=== PATIENT | female | born 1940 | race Caucasian/White ===

== ENCOUNTER 2018-02-27 09:41 | Day surgery (SDC) | payer OTHER ==
[2018-02-27 10:36] VITALS: BMI 23.3
[2018-02-27 11:17] VITALS: TEMP 97.7
--- NOTE | 2018-02-27 11:32 | PROC ---
Endoscopy Procedure Endoscopy procedure completed. Please see scanned procedure report.
[2018-02-27 13:03] VITALS: PULSE 66
[2018-02-27 13:22] VITALS: BP 106/62
== END 2018-02-27 12:15 | disposition home or self-care (01) ==
LOC: JASU-ENDO 09:41
PROVIDERS: ATTEND Internal Medicine Gastroenterology
PROC: 0DB68ZX Excision of Stomach, Via Natural or Artificial Opening Endoscopic, Diagnostic (ICD-10-PCS; 2018-02-27)
PROC: 0DB98ZX Excision of Duodenum, Via Natural or Artificial Opening Endoscopic, Diagnostic (ICD-10-PCS; principal; 2018-02-27 11:00)
DX: K29.80 Duodenitis without bleeding (principal)
CPT/HCPCS: 88305-TC; 88342-TC

== ENCOUNTER 2019-10-10 04:30 | Day surgery (SDC) | payer OTHER ==
[2019-09-20 17:06] VITALS: BMI 20.9
--- NOTE | 2019-10-09 19:11 | HP ---
DATE OF ADMISSION: 10/10/2019 ADMISSION DIAGNOSIS: Chronic sinusitis and nasal polyps. HISTORY OF PRESENT ILLNESS: This 78-year-old female has had a long history of chronic sinus problems. She reports facial pain, headache, nasal congestion and obstruction as well as sinus pain and pressure. She has had significant nasal polyps noted. There is thick, watery drainage as well as yellow drainage and eye pressure bilaterally. 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 She has been found to have significant nasal polyps. CT scan of the paranasal sinuses shows chronic pansinusitis, and she is now admitted for endoscopic sinus surgery to address ethmoid, maxillary, frontal, and sphenoid sinuses as well as excision of extensive nasal polyps with image guidance. PAST MEDICAL HISTORY: Primary medical doctor is Elizabeth Faustin MD. The patient has had history of COPD, emphysema, gastroesophageal reflux disease, high blood pressure. She has undergone previous cataract surgery as well as gallbladder surgery and a bladder lift. She has had 1 episode of some undefined anesthesia problem at [facility] after her cholecystectomy, but she has had general surgery for a bladder lift subsequently without problem. Bleeding history is negative. FAMILY HISTORY: Negative for bleeding or anesthesia problems. PRESENT MEDICATIONS: Include amlodipine, Bystolic, calcium, fluticasone nasal spray, and losartan. ALLERGIES: She does report allergies to LISINOPRIL as well as IODINE. SOCIAL HISTORY: She does not smoke. REVIEW OF SYSTEMS: Indicates positive headache and nasal obstruction, positive anosmia, mild intermittent cough, heartburn, and allergies. PHYSICAL EXAMINATION: General: Patient is a well-developed female in no distress. HEENT: Head is normal. Eyes are clear. Ears are unremarkable. The nose has significant congestion. The septum is intact. There is thick mucus, massive nasal polyps obstructing the nasal airways. Polyps are also visualized out of the middle meatuses and posterior choanae. DATA: Preoperative labs are pending. CT scan of the paranasal sinuses performed at [facility] on June 03, 2018, demonstrates almost complete opacification of maxillary sinuses and the frontal sinus. There is moderate thickening of the sphenoid sinuses and the ethmoid sinus. Polyp formation is seen. Occlusion of both osteomeatal units is present. IMPRESSION: Chronic pansinusitis and nasal polyps with anosmia. PLAN: Endoscopic sinus surgery to address ethmoid, maxillary, frontal, and sphenoid sinuses; extensive nasal polypectomy with image guidance. INFORMED CONSENT: Patient understands the indications, alternatives, nature, risks, and benefits of proposed surgery. Potential complications including, but not limited to, anesthesia, bleeding, infection, recurrence, numbness, reduced sense of smell, eye injury and brain injury were discussed in detail. She understands and accepts these risks and wishes to proceed with surgery. Questions are answered fully. MELISA RED M.D. JORDAN/[id number]
[2019-10-10] MEDS ORDERED: PROPOFOL 20 ML ONE ×2 (07:04)
[2019-10-10] MEDS ORDERED: fentaNYL CITRATE 250 MCG/5 ML VIAL ONE (07:04)
[2019-10-10] MEDS ORDERED: MIDAZOLAM HCL 2 MG/2 ML SINGLE DOSE VIAL ONE (07:05)
[2019-10-10] MEDS ORDERED: ROCURONIUM BROMIDE 50 MG/5 ML SYRINGE ONE (07:05)
[2019-10-10] MEDS ORDERED: SUCCINYLCHOLINE CHLORIDE 200 MG/10 ML SYRINGE ONE (07:05)
[2019-10-10] MEDS ORDERED: LIDOCAINE HCL/PF 2% SDV 5ML VIAL ONE (07:06)
[2019-10-10] MEDS ORDERED: LIDOCAINE HCL 2% JELLY (5 ML/TUBE) ONE (07:06)
[2019-10-10] MEDS ORDERED: DEXAMETHASONE SOD PHOSPHATE 4 MG/1 ML VIAL ONE (07:06)
[2019-10-10] MEDS ORDERED: LIDOCAINE 1%-EPI 1:100,000 30 ML MDV IJ ONE (07:53)
--- NOTE | 2019-10-10 07:55 | HP ---
History & Physical Update - History History: No Change - Physical Physical: No Change - Assessment Assessment: No Change - Plan Plan: No Change
[2019-10-10] MEDS ORDERED: COCAINE HCL 4% TOPICAL SOLUTION 4 ML BOTTLE TP ONE ×2 (08:07→08:29)
[2019-10-10] MEDS ORDERED: EPHEDRINE SULFATE/0.9% NACL/PF 50 MG/10 ML SYRINGE NR ONE (08:23)
[2019-10-10] MEDS ORDERED: LIDOCAINE 1%/EPI 1:100000 (20 ML MULTI DOSE VIAL) IJ ONE ×2 (08:28)
[2019-10-10] MEDS ORDERED: VASOPRESSIN 20 UNITS/ML VIAL IV ONE (08:36)
[2019-10-10] MEDS ORDERED: NEOSTIGMINE METHYLSULFATE 0.5 MG/ML - 10 ML MDV ONE (09:16)
[2019-10-10] MEDS ORDERED: GLYCOPYRROLATE 0.2 MG/1 ML VIAL ONE (09:17)
[2019-10-10] MEDS ORDERED: oxyCODONE HCL 5 MG TABLET PO PRN (09:48)
--- NOTE | 2019-10-10 09:48 | OP ---
Operative Note - Note: Operative Date: 10/10/19 ([id number]) Pre-Operative Diagnosis: chronic pansinusitis, nasal polyposis Operation: bilateral endoscopic ethmoidectomy, anterior and posterior, bilateral endoscopic sphenoidotomy, bilateral endoscopic maxillary sinus antrostomy with removal of tissue, bilateral frontal sinus exploration, extensive bilateral nasal polypectomy, image guidance Findings: chronic pansinusitis with extensive nasal polyposis Implants: none Post-Operative Diagnosis: Same as Pre-op Surgeon: Joseph Thompson Anesthesiologist/COILED COIL INSPECTOR: Abdoulaye Johnston Anesthesia: General Specimens Removed: left nasal polyps,ethmoid and maxillary sinus tissue. right nasal polyps,ethmoid and maxillary sinus tissue Estimated Blood Loss (mls): 25 Drains & Tubes with Location: none Blood Volume Replaced (mls): 0
[2019-10-10] MEDS ORDERED: ONDANSETRON 4 MG/2 ML VIAL IVPUSH PRN (10:12)
[2019-10-10] MEDS ORDERED: LACTATED RINGERS SOLUTION 1,000 ML IV SCH (10:15)
[2019-10-10 13:53] VITALS: TEMP 97.4
[2019-10-10 14:36] VITALS: BP 104/63; PULSE 59
--- NOTE | 2019-10-10 19:40 | OP ---
DATE OF OPERATION: 10/10/2019 PREOPERATIVE DIAGNOSIS: Chronic pansinusitis and extensive nasal polyposis. POSTOPERATIVE DIAGNOSIS: Chronic pansinusitis and extensive nasal polyposis. PROCEDURE: 1. Bilateral endoscopic ethmoidectomy anterior and posterior. 2. Bilateral endoscopic sphenoidotomy. 3. Bilateral endoscopic maxillary sinus antrostomy with removal of tissue. 4. Bilateral internal sinus exploration. 5. Extensive bilateral nasal polypectomy. 6. Imaging guidance. SURGEON: Joseph Red MD. ANESTHESIOLOGIST: Kathryn Olmstead MD; Abdoulaye Johnston CRNA. ANESTHESIA: General via endotracheal tube. INDICATION: This 78-year-old female has had a long history of chronic nasal and sinus problems which failed to improve with appropriate medical therapy. She has had nasal drainage, nasal obstruction and discomfort. Examination demonstrated significant bilateral nasal polyposis. CT scan demonstrates chronic pansinusitis with nasal polyposis. She is now admitted for surgery. FINDINGS: Extensive nasal polyposis from middle meatus, superior meatus, and sphenoid ethmoid recesses. Chronic sinusitis. PROCEDURE: Patient was brought to the operating room and placed on the operating table in the supine position. General endotracheal anesthesia was induced to a satisfactory level. She was prepped and draped in the usual fashion for surgery. Visible nasal polyps were infiltrated with lidocaine 1% with epinephrine 1:100,000. Cocaine 4% was applied topically within both nasal cavities. The [employer] navigation system was utilized. Patient CT scan data was uploaded, and she was registered. This was used intermittently throughout the case in order to identify anatomic landmarks and to guide dissection. Nasal pledgets were removed. Nasal endoscopy was performed with a 0-degree telescope. Extensive bilateral nasal polyposis was identified obstructing the nasal airflow. These emanated from the middle meatus, sphenoid ethmoid recesses. Lidocaine 1% with epinephrine 1:100,000 was insufflated into the middle turbinate and lateral nasal duvall. Additional cocaine 4% was placed in the middle meatus. Left paranasal sinus was first addressed. Visible nasal polyps were removed with the straight and upbiting forceps both from the middle meatus, superior meatus, and sphenoid ethmoid recesses. Next, left ethmoidectomy was performed with the ethmoid forceps and Xomed microdebrider with guidance. The anterior cells were opened, and then the posterior cells were opened. The lamina papyracea and the fovea ethmoidalis were preserved. The sphenoid ostium was identified and enlarged. Next, the left maxillary sinus was addressed. Backbiting forceps were used to remove the ethmoid process. The ball tip seeker was used to identify the natural ostium; this was then enlarged with the forward and reverse cutting forceps. The 70-degree scope was then used to inspect the interior of the maxillary sinus. A large cyst was seen as well as some mucus; the mucus was suctioned. The cyst was then grasped with the Giraffe forceps and accessible wall was removed. Attention was then turned toward the left frontal sinus. Again using the 70-degree scope, the upbiting forceps as well as Giraffe forceps were used to remove the anterior-most ethmoid cells. The natural ostium of the frontal sinus was identified and was cleared. Next, attention was turned toward the right paranasal sinuses. Nasal polypectomy was performed with the straight and upbiting forceps. Polyps were removed from the middle meatus, superior meatus, and sphenoid ethmoid recess on the right. Next, anterior and posterior ethmoidectomy was performed with the ethmoid forceps and Xomed microdebrider with guidance. Again, anterior cells were opened and then posterior cells. The lamina papyracea and the fovea ethmoidalis were preserved. The natural ostium of the sphenoid sinus on the right was identified and enlarged. Next, attention was turned toward the maxillary sinus. The uncinate process was removed. The natural ostium was identified with a ball tipped seeker. The antrostomy was performed. Interior of the sinus showed lots of thick mucus which was suctioned, and a large cyst anteriorly was then removed with the Giraffe forceps. Finally, attention was turned toward the right frontal sinus. Again with the 70-degree scope and upbiting and Giraffe forceps, the frontal sinus outflow tract was enlarged. The natural ostium of the frontal sinus was identified and the frontal sinus ostium seeker was easily passed and location confirmed with image guidance. Final inspection demonstrated open ethmoid axillary sphenoid in the frontal sinuses. Spot electrocauterization was performed to stop minor areas of oozing. Finally, the ethmoid beds were each packed with NasoPore standard dressings. Patient tolerated procedure well. She was then awakened from general anesthesia and transferred to PACU in stable condition. Estimated blood loss was 25 mL. She received crystalloid during the procedure. Specimens included right maxillary sinus, ethmoid sinus, and nasal polyp tissue as well as left maxillary sinus, ethmoid sinus, and nasal polyp tissue. The shaver collected specimens from right and left ethmoid sinuses. There were no complications. JOSEPH RED M.D. JORDAN/[id number]
--- NOTE | 2019-10-19 14:55 | PATH ---
Surgical Pathology Report Patient Name: ANAMARIA OMER [facility]. Rec. #: [id number] /Age/Gender: 1940 (Age: 78) / F Account: [id number] Location: [facility] SUR[facility]ICAL Taken: 10/10/2019 Received: 10/10/2019 Reported: 10/11/2019 Physicians: Joseph Thompson M.D. Specimen(s) Received A: LEFT ETHMOID AND NASAL POLYP TISSUE, MAXILLARY SINUS TISSUE LEFT B: RIGHT ETHMOID AND NASAL POLYP, MAXILLARY SINUS TISSUE RIGHT C: LEFT AND RIGHT ETHMOID SHAVINGS Clinical History Chronic pansinusitis, nasal polyps Final Diagnosis A. LEFT ETHMOID AND NASAL POLYP WITH LEFT MAXILLARY TISSUE, EXCISION: FRAGMENTS OF INFLAMMATORY POLYP. CHRONIC SINUSITIS. B. RIGHT ETHMOID AND NASAL POLYP WITH RIGHT MAXILLARY TISSUE, EXCISION: FRAGMENTS OF INFLAMMATORY POLYP. CHRONIC SINUSITIS. C. LEFT AND RIGHT ETHMOID SHAVINGS: CHRONIC SINUSITIS. Electronically Signed Tiffanie Coburn M.D. Gross Description A. Received in formalin labeled "left ethmoid and nasal polyp with left maxillary tissue," is a 3.8 x 3.2 x 0.3 cm aggregate of harvey-yellow irregular to polypoid portions of soft tissue. Also received within the same container is a 1.8 x 1.4 x 0.3 cm aggregate of harvey fragments of cartilage and possible bone. The specimen is entirely submitted in 4 cassettes as follows: 1-3-polyps; 4-cartilage and possible bone, following decalcification. B. Received in formalin labeled "right ethmoid and nasal polyp tissue, maxillary sinus tissue right," is a 4.7 x 3.5 x 0.4 cm aggregate of harvey-yellow irregular to polypoid portions of soft tissue. Also received within the same container is a 1.8 x 1.3 x 0.3 cm aggregate of harvey fragments of cartilage and possible bone. The specimen is entirely submitted in 4 cassettes as follows: 1-3-polyps; 4-cartilage and possible bone, following decalcification. C. Received in formalin labeled "left and right ethmoid shavings," is a 7.0 x 6.0 x 0.5 cm aggregate of harvey-red soft tissue fragments admixed with abundant blood tinged mucus. A insurance claims representative portion is submitted in one cassette. DL10/10/2019 saudi10/10/2019
== END 2019-10-10 15:25 | disposition home or self-care (01) ==
LOC: JASU-SURG 04:30
PROVIDERS: ATTEND Otolaryngology
PROC: 09TV8ZZ Resection of Left Ethmoid Sinus, Via Natural or Artificial Opening Endoscopic (ICD-10-PCS; 2019-10-10)
PROC: 09TU8ZZ Resection of Right Ethmoid Sinus, Via Natural or Artificial Opening Endoscopic (ICD-10-PCS; 2019-10-10)
PROC: 8E09XBZ Computer Assisted Procedure of Head and Neck Region (ICD-10-PCS; 2019-10-10)
PROC: 8E09XBZ Computer Assisted Procedure of Head and Neck Region (ICD-10-PCS; principal; 2019-10-10 08:00)
DX: J32.4 Chronic pansinusitis (principal); J33.8 Other polyp of sinus
CPT/HCPCS: 94760

== ENCOUNTER 2022-09-14 15:00 | Emergency (ER) | payer OTHER ==
[2022-09-14 15:59] VITALS: BMI 22.8
[2022-09-14 17:59] LABS: BASO % 0.5 % (0-2.0); HEMATOCRIT 39.7 % (32.4-45.2); HEMOGLOBIN 13.2 GM/dL (10.7-15.3); LYMPH % 16.2 % (8-40); MCH 29.1 pg (25.7-33.7); MCHC 33.1 g/dl (32.0-36.0); MEAN CELL VOLUME 87.7 fl (80-96); MEAN PLT VOLUME 8.5 fl (7.5-11.1); NEUT % 69.3 % (42.8-82.8); PLATELET COUNT 271 10^3/uL (134-434); RBC 4.53 M/mm3 (3.60-5.2); RDW 13.4 % (11.6-15.6); WHITE BLOOD COUNT 8.6 K/mm3 (4.0-10.0)
[2022-09-14 18:18] LABS: INR 1.19 (0.83-1.09); PROTHROMBIN TIME (PATIENT) 13.7 SEC (9.7-13.0)
[2022-09-14 18:20] LABS: ACTIVATED PTT 27.7 SECONDS (25.2-36.5)
[2022-09-14 18:23] LABS: ALBUMIN 3.7 g/dl (3.4-5.0); BLOOD UREA NITROGEN 17.9 mg/dL (7-18); CALCIUM 11.2 mg/dL (8.5-10.1)
[2022-09-14 18:28] LABS: BILIRUBIN,TOTAL 1.3 mg/dL (0.2-1)
[2022-09-14] MEDS ORDERED: ACETAMINOPHEN 1000 MG/100 ML BAG IVPB ONE (22:20)
[2022-09-14] MEDS ORDERED: ENOXAPARIN NA (PORCINE) 60 MG/0.6 ML DISP.SYRIN SQ ONE (22:30)
[2022-09-14] MEDS ORDERED: ACETAMINOPHEN INJECTION 100 ML IVPB ONE (22:39)
[2022-09-15 01:34] VITALS: BP 102/59; PULSE 76; RESP 16; TEMP 98.2
== END 2022-09-15 02:03 | disposition home or self-care (01) ==
LOC: JER 15:00
PROC: 3E0333Z Introduction of Anti-inflammatory into Peripheral Vein, Percutaneous Approach (ICD-10-PCS; principal; 2022-09-14)
DX: M71.22 Synovial cyst of popliteal space [Baker], left knee (principal)
CPT/HCPCS: 0241U-QW; 36415; 71045-TC-FY; 71250-TC; 74176-TC; 80053; 84484; 85025; 85610; 85730; 93971-TC; 99285-25

== ENCOUNTER 2023-01-13 23:14 | Inpatient (IN) | payer OTHER ==
[2023-01-13] MEDS ORDERED: ALBUTEROL SO4 2.5/IPRATROPIUM 0.5 INH SOL 3 ML VIAL.NEB. NEB ONE ×3 (23:26→23:40)
[2023-01-13] MEDS ORDERED: methylPREDNISolone NA SUCC 125 MG/2 ML VIAL IVPUSH ONE (23:27)
[2023-01-14] MEDS ORDERED: methylPREDNISolone NA SUCC 125 MG/2 ML VIAL ONE (00:34)
[2023-01-14 00:35] LABS: VENOUS BASE EXCESS -3.5 mmol/L (-2-2); VENOUS O2 SATURATION 62.2 % (70-80); VENOUS PH 7.359 (7.310-7.410)
[2023-01-14 00:57] LABS: POTASSIUM 4.2 mmol/L (3.5-5.1)
[2023-01-14 00:59] LABS: CALCIUM 10.9 mg/dL (8.5-10.1)
[2023-01-14 01:01] LABS: ALBUMIN 4.3 g/dl (3.4-5.0)
[2023-01-14 01:04] LABS: TOT PROT 8.2 g/dl (6.4-8.2)
[2023-01-14 01:05] LABS: BILIRUBIN,TOTAL 0.6 mg/dL (0.2-1)
[2023-01-14 01:23] LABS: BASO % 1.2 % (0-2.0); EOS % 16.6 % (0-4.5); HEMOGLOBIN 14.1 GM/dL (10.7-15.3); LYMPH % 23.2 % (8-40); MCH 29.3 pg (25.7-33.7); MCHC 33.5 g/dl (32.0-36.0); MEAN CELL VOLUME 87.4 fl (80-96); MEAN PLT VOLUME 9.1 fl (7.5-11.1); MONO % 10.6 % (3.8-10.2); NEUT % 48.4 % (42.8-82.8); PLATELET COUNT 191 10^3/uL (134-434); RBC 4.81 M/mm3 (3.60-5.2); WHITE BLOOD COUNT 5.8 K/mm3 (4.0-10.0)
[2023-01-14] MEDS ORDERED: ASPIRIN 81 MG CHEWABLE TABLETS PO ONE (01:24)
[2023-01-14] MEDS ORDERED: CEFTRIAXONE 1,000 MG in DEXTROSE 5%-WATER - 50 ML IVPB ONE (01:24)
[2023-01-14] MEDS ORDERED: FAMOTIDINE 20 MG/50 ML IVPB 20 MG/50 ML MG IVPB ONE ×2 (01:28→01:40)
[2023-01-14] MEDS ORDERED: ASPIRIN 81 MG CHEWABLE TABLETS ONE (01:39)
[2023-01-14] MEDS ORDERED: CEFTRIAXONE 1 GM/50 ML BAG ONE (01:40)
[2023-01-14] MEDS ORDERED: AZITHROMYCIN IVPB 500 MG in DEXTROSE 5%-WATER - 250 ML IVPB ONE (02:50)
[2023-01-14] MEDS ORDERED: ALBUTEROL SULFATE 0.021% (0.63 MG/3 ML) VIAL.NEB NEB ONE (03:41)
[2023-01-14] MEDS ORDERED: ALBUTEROL SO4 2.5/IPRATROPIUM 0.5 INH SOL 3 ML VIAL.NEB. NEB ONE (03:43)
[2023-01-14] MEDS ORDERED: ALBUTEROL SO4 0.083% IH SOL 2.5 MG/3 ML VIAL.NEB. NEB ONE ×4 (03:44→09:29)
[2023-01-14 06:48] LABS: BASO % 0.7 % (0-2.0); EOS % 0.6 % (0-4.5); HEMATOCRIT 42.1 % (32.4-45.2); HEMOGLOBIN 14.4 GM/dL (10.7-15.3); LYMPH % 9.5 % (8-40); MCHC 34.4 g/dl (32.0-36.0); MEAN CELL VOLUME 87.4 fl (80-96); MEAN PLT VOLUME 9.9 fl (7.5-11.1); MONO % 1.1 % (3.8-10.2); NEUT % 88.1 % (42.8-82.8); PLATELET COUNT 212 10^3/uL (134-434); RBC 4.81 M/mm3 (3.60-5.2); RDW 13.8 % (11.6-15.6); WHITE BLOOD COUNT 4.3 K/mm3 (4.0-10.0)
[2023-01-14 06:49] LABS: INR 1.1 (0.83-1.09); PROTHROMBIN TIME (PATIENT) 12.8 SEC (9.7-13.0)
[2023-01-14 06:51] LABS: POTASSIUM 3.5 mmol/L (3.5-5.1)
[2023-01-14 06:55] LABS: CALCIUM 10.5 mg/dL (8.5-10.1)
[2023-01-14 06:56] LABS: BLOOD UREA NITROGEN 17.6 mg/dL (7-18)
[2023-01-14 06:59] LABS: CREATININE 1.1 mg/dL (0.55-1.3)
[2023-01-14 07:00] LABS: BILIRUBIN,TOTAL 0.4 mg/dL (0.2-1); TOT PROT 7.7 g/dl (6.4-8.2)
[2023-01-14] MEDS ORDERED: AZITHROMYCIN IVPB 500 MG/250 ML BAG IVPB ONE (07:21)
[2023-01-14] MEDS ORDERED: ALBUTEROL SO4 0.083% IH SOL 2.5 MG/3 ML VIAL.NEB. NEB PRN (07:35)
[2023-01-14] MEDS ORDERED: ACETAMINOPHEN 325 MG TABLET (FP) PO PRN (07:35)
[2023-01-14] MEDS ORDERED: LOSARTAN POTASSIUM 50 MG TABLET ONE (09:11)
[2023-01-14] MEDS ORDERED: PANTOPRAZOLE 40 MG TABLET PO ONE (09:11)
[2023-01-14] MEDS ORDERED: methylPREDNISolone NA SUCC 40 MG/1 ML VIAL ONE (09:12)
[2023-01-14] MEDS: methylPREDNISolone NA SUCC 40 MG/1 ML VIAL IVPUSH SCH ×2 (09:32→17:42)
[2023-01-14] MEDS: NEBIVOLOL 2.5 MG TABLET (FP) PO SCH (09:32)
[2023-01-14] MEDS: LOSARTAN POTASSIUM 50 MG TABLET PO SCH (09:32)
[2023-01-14] MEDS: PANTOPRAZOLE 40 MG TABLET PO SCH (09:33)
[2023-01-14] MEDS: amLODIPine BESYLATE 10 MG TABLET (FP) PO SCH (09:33)
[2023-01-14] MEDS: FLUTICASONE/UMECLIDIN/VILANTER(100-62.5-25 TRELEGY ELLIPTA) INAHLER IH SCH (11:33)
[2023-01-14 17:54] VITALS: BMI 21.0
[2023-01-14] MEDS ORDERED: ALBUTEROL SO4 2.5/IPRATROPIUM 0.5 INH SOL 3 ML VIAL.NEB. NEB SCH (20:00)
[2023-01-14] MEDS: DOXYCYCLINE INJECTION 100 MG in DEXTROSE 5%-WATER 100 ML IVPB SCH (22:04)
[2023-01-15] MEDS: methylPREDNISolone NA SUCC 40 MG/1 ML VIAL IVPUSH SCH ×3 (02:33→17:59)
[2023-01-15] MEDS: PANTOPRAZOLE 40 MG TABLET PO SCH (09:24)
[2023-01-15] MEDS: NEBIVOLOL 2.5 MG TABLET (FP) PO SCH (09:24)
[2023-01-15] MEDS: LOSARTAN POTASSIUM 50 MG TABLET PO SCH (09:24)
[2023-01-15] MEDS: amLODIPine BESYLATE 10 MG TABLET (FP) PO SCH (09:24)
[2023-01-15] MEDS: DOXYCYCLINE INJECTION 100 MG in DEXTROSE 5%-WATER 100 ML IVPB SCH ×2 (09:25→21:17)
[2023-01-15] MEDS: FLUTICASONE/UMECLIDIN/VILANTER(100-62.5-25 TRELEGY ELLIPTA) INAHLER IH SCH (09:26)
[2023-01-15] MEDS ORDERED: CEFTRIAXONE 1 GM in DEXTROSE 5%-WATER - 50 ML IVPB SCH (10:00)
[2023-01-15] MEDS ORDERED: AZITHROMYCIN IVPB 500 MG/250 ML BAG IVPB SCH (10:00)
[2023-01-15] MEDS ORDERED: diphenhydrAMINE HCL 25 MG CAPSULE (FP) PO ONE (21:00)
[2023-01-16] MEDS: methylPREDNISolone NA SUCC 40 MG/1 ML VIAL IVPUSH SCH ×3 (03:10→17:27)
[2023-01-16] MEDS ORDERED: AMOX TR/POT CLAV 500MG/125MG TABLETS (FP) PO SCH (08:00)
[2023-01-16 08:21] LABS: HEMOGLOBIN 13.3 GM/dL (10.7-15.3); MCH 29.3 pg (25.7-33.7); MEAN CELL VOLUME 86.4 fl (80-96); MEAN PLT VOLUME 9.9 fl (7.5-11.1); PLATELET COUNT 176 10^3/uL (134-434); RBC 4.52 M/mm3 (3.60-5.2); RDW 14.2 % (11.6-15.6); WHITE BLOOD COUNT 12.3 K/mm3 (4.0-10.0)
[2023-01-16 08:34] LABS: POTASSIUM 4.5 mmol/L (3.5-5.1)
[2023-01-16 08:37] LABS: BLOOD UREA NITROGEN 40.2 mg/dL (7-18)
[2023-01-16 08:45] LABS: CALCIUM 10.7 mg/dL (8.5-10.1); N-TERMINAL BNP 1703.3 pg/ml (5-450)
[2023-01-16] MEDS: NEBIVOLOL 2.5 MG TABLET (FP) PO SCH (09:35)
[2023-01-16] MEDS: LOSARTAN POTASSIUM 50 MG TABLET PO SCH (09:35)
[2023-01-16] MEDS: amLODIPine BESYLATE 10 MG TABLET (FP) PO SCH (09:35)
[2023-01-16] MEDS: PANTOPRAZOLE 40 MG TABLET PO SCH (09:35)
[2023-01-16] MEDS: FLUTICASONE/UMECLIDIN/VILANTER(100-62.5-25 TRELEGY ELLIPTA) INAHLER IH SCH (10:00)
[2023-01-16 17:32] LABS: PH,URINE 5.5 (5.0-8.0); URINE APPEARANCE CLEAR; URINE BILIRUBIN NEGATIVE (NEGATIVE); URINE COLOR YELLOW; URINE GLUCOSE (UA) NEGATIVE (NEGATIVE); URINE KETONE NEGATIVE (NEGATIVE); URINE LEUK ESTERASE NEGATIVE (NEGATIVE); URINE NITRITE NEGATIVE (NEGATIVE); URINE PROTEIN NEGATIVE (NEGATIVE); URINE UROBILINOGEN 0.2 mg/dL (0.2-1.0)
[2023-01-16] MEDS: HYDROCORTISONE 2.5% TOPICAL CREAM 30 GM TUBE TP SCH (21:18)
[2023-01-17] MEDS: methylPREDNISolone NA SUCC 40 MG/1 ML VIAL IVPUSH SCH ×3 (01:01→17:54)
[2023-01-17] MEDS: HYDROCORTISONE 2.5% TOPICAL CREAM 30 GM TUBE TP SCH ×2 (10:07→21:07)
[2023-01-17] MEDS: FLUTICASONE/UMECLIDIN/VILANTER(100-62.5-25 TRELEGY ELLIPTA) INAHLER IH SCH (10:07)
[2023-01-17] MEDS: NEBIVOLOL 2.5 MG TABLET (FP) PO SCH (10:09)
[2023-01-17] MEDS: LOSARTAN POTASSIUM 50 MG TABLET PO SCH (10:11)
[2023-01-17] MEDS: amLODIPine BESYLATE 10 MG TABLET (FP) PO SCH (10:11)
[2023-01-17] MEDS: PANTOPRAZOLE 40 MG TABLET PO SCH (10:11)
[2023-01-17] MEDS ORDERED: SODIUM CHLORIDE 0.45% 1,000 ML IV SCH (10:15)
[2023-01-17 13:20] LABS: POTASSIUM 4.4 mmol/L (3.5-5.1)
[2023-01-17 13:24] LABS: ALBUMIN 4.2 g/dl (3.4-5.0); BLOOD UREA NITROGEN 32.9 mg/dL (7-18); CALCIUM 11.6 mg/dL (8.5-10.1)
[2023-01-17 13:27] LABS: CREATININE 0.8 mg/dL (0.55-1.3)
[2023-01-17 13:29] LABS: BILIRUBIN,TOTAL 0.6 mg/dL (0.2-1); TOT PROT 8.4 g/dl (6.4-8.2)
[2023-01-17] MEDS ORDERED: diphenhydrAMINE HCL 25 MG CAPSULE (FP) PO ONE (21:46)
[2023-01-18] MEDS: methylPREDNISolone NA SUCC 40 MG/1 ML VIAL IVPUSH SCH (02:01)
[2023-01-18 02:10] VITALS: RESP 16
[2023-01-18 08:59] LABS: POTASSIUM 4.2 mmol/L (3.5-5.1)
[2023-01-18 09:05] LABS: CALCIUM 10.4 mg/dL (8.5-10.1)
[2023-01-18 09:06] LABS: BLOOD UREA NITROGEN 29.9 mg/dL (7-18)
[2023-01-18 09:09] LABS: BILIRUBIN,TOTAL 0.4 mg/dL (0.2-1); CREATININE 0.8 mg/dL (0.55-1.3)
[2023-01-18 09:16] LABS: ALBUMIN 3.2 g/dl (3.4-5.0); TOT PROT 6.2 g/dl (6.4-8.2)
[2023-01-18] MEDS ORDERED: predniSONE 10 MG TABLET (UD) PO SCH (10:00)
[2023-01-18] MEDS: amLODIPine BESYLATE 10 MG TABLET (FP) PO SCH (11:12)
[2023-01-18] MEDS: LOSARTAN POTASSIUM 50 MG TABLET PO SCH (11:12)
[2023-01-18] MEDS: PANTOPRAZOLE 40 MG TABLET PO SCH (11:12)
[2023-01-18] MEDS: NEBIVOLOL 2.5 MG TABLET (FP) PO SCH (11:13)
[2023-01-18] MEDS: HYDROCORTISONE 2.5% TOPICAL CREAM 30 GM TUBE TP SCH (11:13)
[2023-01-18] MEDS: FLUTICASONE/UMECLIDIN/VILANTER(100-62.5-25 TRELEGY ELLIPTA) INAHLER IH SCH (11:13)
[2023-01-18 12:42] VITALS: BP 111/63; PULSE 71; TEMP 98.9
[2023-01-18] MEDS ORDERED: SODIUM CHLORIDE 0.45% 1,000 ML IV SCH (14:30)
== END 2023-01-18 14:25 | disposition home or self-care (01) | DRG 192 ==
LOC: JER 23:14 → JERBED 01-14 02:41 → J4W 01-14 17:06 → J4S 01-17 17:15
PROVIDERS: ADMIT Internal Medicine; ATTEND Family Medicine
DX: J44.0 Chronic obstructive pulmonary disease with (acute) lower respiratory infection (principal); I10 Essential (primary) hypertension; J20.9 Acute bronchitis, unspecified; E78.5 Hyperlipidemia, unspecified; J44.1 Chronic obstructive pulmonary disease with (acute) exacerbation; E21.3 Hyperparathyroidism, unspecified; J32.9 Chronic sinusitis, unspecified; K21.9 Gastro-esophageal reflux disease without esophagitis; R94.31 Abnormal electrocardiogram [ECG] [EKG]; L27.1 Localized skin eruption due to drugs and medicaments taken internally; T36.4X5A Adverse effect of tetracyclines, initial encounter; I45.10 Unspecified right bundle-branch block; N28.1 Cyst of kidney, acquired; Z87.11 Personal history of peptic ulcer disease
CPT/HCPCS: 0241U-QW; 36415; 71045-TC-FY; 80048; 80053; 80061; 81003; 82310; 82570; 82803; 83735; 83880; 83970; 84155; 84156; 84165; 84484; 85025; 85027; 85610; 87070; 87116; 87205; 87206; 87633; 93005; 93010; 93306-TC; 94660; 97116-GP; 97161-GP; 99285-25